=== PATIENT | male | born 2000 | race Caucasian/White ===

== ENCOUNTER 2021-01-12 02:07 | Emergency (ER) | payer OTHER ==
[2021-01-12] MEDS ORDERED: predniSONE 20 MG TAB ONE (02:35)
[2021-01-12] MEDS ORDERED: Famotidine 20 MG TAB ONE (02:36)
== END 2021-01-12 04:19 | disposition home or self-care (01) ==
LOC: CSHERS 02:07
DX: T78.01XA Anaphylactic reaction due to peanuts, initial encounter (principal)
CPT/HCPCS: 99284; J7512